=== PATIENT | male | born 1945 | race Caucasian/White ===

== ENCOUNTER 2024-11-09 08:07 | Inpatient (IN) | payer OTHER ==
[~2024-11-09] VITALS: Ht 167.6 cm; Wt 78.5 kg
[~2024-11-09 08:07] MED LIST: AMBIEN10 MG PO; CIPRO750 MG PO; DOCUSATE SODIU100 MG PO; NEURONTIN PO; PERCOCET 5/3251 TAB PO
[2024-11-09 09:12] LABS: COVID-19 AG NEGATIVE (NEGATIVE)
[2024-11-09] MEDS ORDERED: TENORMIN50 M1 PO (10:43)
[2024-11-09] MEDS ORDERED: VASOTEC20 MG PO (10:43)
[2024-11-09] MEDS ORDERED: CLONAZEPAM1 MG PO (10:44)
[2024-11-09] MEDS ORDERED: ALDACTONE50 MG PO (10:44)
[2024-11-09] MEDS ORDERED: SYNTHROID88 MCG PO (10:44)
[2024-11-14] MEDS ORDERED: BACTRIM DS TAB1 EACH PO (07:45)
[2024-11-14] MEDS ORDERED: MEDROLPACK PO (07:45)
[2024-11-14] MEDS ORDERED: PERCOCET 5-3251 EACH PO (07:45)
[2024-11-14] MEDS ORDERED: COLACE100 MG PO (07:45)
[2024-11-14] MEDS ORDERED: GABAPENTIN100 M2 PO (07:46)
[2024-11-14] MEDS ORDERED: NEURONTIN800 MG PO (07:46)
[2024-11-14] MEDS ORDERED: ZOFRAN8 MG PO (07:46)
[2024-11-14] MEDS ORDERED: IOVERSOL 320 MG/ML - 50 ML VIAL IV ONE (09:53)
[2024-11-14] MEDS ORDERED: 0.9 % SODIUM CHLORIDE 1,000 ML IV SCH (13:45)
[2024-11-14] MEDS ORDERED: PROMETHAZINE HCL 50 MG/ML AMPUL IM PRN (13:45)
[2024-11-14] MEDS ORDERED: ENALAPRILAT DIHYDRATE 1.25 MG/ML VIAL IV PRN (13:45)
[2024-11-14] MEDS ORDERED: METHYLPREDNISOLONE ACETATE 80 MG/ML VIAL ONE (15:05)
[2024-11-14] MEDS ORDERED: VANCOMYCIN HCL 1,000 MG VIAL ONE ×2 (15:06→20:49)
[2024-11-14] MEDS ORDERED: METHYLPREDNISOLONE SOD SUCC 125 MG VIAL ONE ×2 (16:25→16:26)
[2024-11-14] MEDS ORDERED: MORPHINE SULFATE 4 MG/ML CARTRIDGE IV SCH (17:00)
[2024-11-14] MEDS ORDERED: ATENOLOL 50 MG TABLET PO SCH (17:00)
[2024-11-14] MEDS ORDERED: ENALAPRIL MALEATE 20 MG TABLET PO SCH (17:00)
[2024-11-14] MEDS ORDERED: DOCUSATE SODIUM 100MG CAP PO SCH (17:00)
[2024-11-14] MEDS ORDERED: METHYLPREDNISOLONE SOD SUCC 125 MG VIAL IV SCH (17:00)
[2024-11-14] MEDS ORDERED: MORPHINE SULFATE 4 MG/ML VIAL IV ONE ×2 (19:55→20:25)
[2024-11-14] MEDS ORDERED: ACETAMINOPHEN 500 MG GEL..CAP PO SCH (20:00)
[2024-11-14] MEDS ORDERED: VANCOMYCIN HCL 1,000 MG VIAL IV SCH (21:00)
[2024-11-14] MEDS ORDERED: GABAPENTIN 800 MG TABLET PO SCH (21:00)
[2024-11-14 22:42] VITALS: BP 131/78; O2SAT 96
[2024-11-15] VITALS: BP 126/79; O2SAT 96
[2024-11-15] MEDS ORDERED: SODIUM CHLORIDE 0.45 % 1,000 ML IV SCH
[2024-11-15] MEDS ORDERED: LEVOTHYROXINE SODIUM 88 MCG TABLET PO SCH (06:00)
[2024-11-15] MEDS ORDERED: OxyCODONE HCL 5 MG TABLET (ROXICODONE) PO PRN (06:01)
[2024-11-15 06:05] VITALS: BP 109/64; O2SAT 98
[2024-11-15 07:10] LABS: BASO % 0.1 % (0.1-1.2); EOS # 0.00 (0.04-0.54); EOS % 0.0 % (0.7-7.0); LYMPH # 0.38 (1.18-3.74); LYMPH % 3.6 % (19.3-53.1); MEAN PLATELET VOLUME 10.10 fl (9.4-12.4); MONO # 0.33 (0.24-0.82); MONO % 3.1 % (4.7-12.5); NEUT # 9.79 (1.56-6.13); NEUT % 92.6 % (34.0-71.1); RED CELL DISTRIBUTION WIDTH 12.3 % (11.6-14.4)
[2024-11-15 07:51] LABS: BUN CREA RATIO 14.0 (7.0-25.0); CREATININE SERUM 1.89 mg/dL (0.70-1.30); GFR 34.76; GLUCOSE FASTING 155.0 mg/dL (65-100); OSMOLALITY SERUM 290.0 MOSM/KG (275-295)
[2024-11-15 08:05] VITALS: BP 116/71; O2SAT 99
[2024-11-15] MEDS ORDERED: TAMSULOSIN HCL 0.4 MG CAP PO SCH (09:00)
[2024-11-15] MEDS ORDERED: SPIRONOLACTONE 50 MG TABLET PO SCH (09:00)
[2024-11-15 12:13] VITALS: BP 116/64; O2SAT 100
[2024-11-15 16:00] VITALS: BP 107/52; O2SAT 97
[2024-11-16 00:51] VITALS: BP 105/69; O2SAT 97
[2024-11-16 05:43] VITALS: BP 96/63; O2SAT 96
[2024-11-16 08:15] VITALS: BP 91/47; O2SAT 97
== END 2024-11-16 12:03 | disposition home or self-care (01) | DRG 428 ==
LOC: SURH 11-14 12:30 → O/R 11-14 13:33 → SURH 11-14 16:00 → PED 11-14 20:12
PROVIDERS: ADMIT Orthopaedic Surgery Orthopaedic Surgery of the Spine; ATTEND Orthopaedic Surgery Orthopaedic Surgery of the Spine
PROC: 0SG3071 Fusion of Lumbosacral Joint with Autologous Tissue Substitute, Posterior Approach, Posterior Column, Open Approach (ICD-10-PCS; 2024-11-14)
PROC: 0SG30KJ Fusion of Lumbosacral Joint with Nonautologous Tissue Substitute, Posterior Approach, Anterior Column, Open Approach (ICD-10-PCS; 2024-11-14)
PROC: 0ST40ZZ Resection of Lumbosacral Disc, Open Approach (ICD-10-PCS; 2024-11-14)
PROC: 0QB30ZX Excision of Left Pelvic Bone, Open Approach, Diagnostic (ICD-10-PCS; 2024-11-14)
PROC: 0QP005Z Removal of External Fixation Device from Lumbar Vertebra, Open Approach (ICD-10-PCS; 2024-11-14)
PROC: 07DR0ZZ Extraction of Iliac Bone Marrow, Open Approach (ICD-10-PCS; 2024-11-14)
PROC: 4A1104G Monitoring of Peripheral Nervous Electrical Activity, Intraoperative, Open Approach (ICD-10-PCS; 2024-11-14)
PROC: 4A12X4Z Monitoring of Cardiac Electrical Activity, External Approach (ICD-10-PCS; 2024-11-14)
PROC: XRGD0R7 Fusion of Lumbosacral Joint using Custom-Made Anatomically Designed Interbody Fusion Device, Open Approach, New Technology Group 7 (ICD-10-PCS; principal; 2024-11-14 16:00)
DX: M43.17 Spondylolisthesis, lumbosacral region (principal); M51.17 Intervertebral disc disorders with radiculopathy, lumbosacral region; M48.07 Spinal stenosis, lumbosacral region; I10 Essential (primary) hypertension; E03.9 Hypothyroidism, unspecified